=== PATIENT | female | born 1990 | race Two or more races ===

== ENCOUNTER 2017-04-29 18:42 | Inpatient (IN) | payer OTHER ==
[2017-04-29 19:21] VITALS: BMI 23.6
[2017-04-29 19:23] LABS: PH,URINE 7.5 (4.5-8); URINE APPEARANCE Clear; URINE BILIRUBIN Negative (NEGATIVE); URINE GLUCOSE (UA) Negative (NEGATIVE); URINE KETONE Negative (NEGATIVE); URINE LEUK ESTERASE Negative (NEGATIVE); URINE NITRITE Negative (NEGATIVE); URINE PROTEIN Negative (NEGATIVE); URINE UROBILINOGEN 0.2 (0.2-1.0)
[2017-04-29 19:24] LABS: URINE BLOOD NEGATIVE (NEGATIVE); URINE COLOR YELLOW
[2017-04-29] MEDS ORDERED: ACETAMINOPHEN INJECTION 100 ML IVPB ONE (19:28)
[2017-04-29] MEDS ORDERED: CEFTRIAXONE 1,000 MG in DEXTROSE 5%-WATER - 50 ML IVPB ONE (19:28)
[2017-04-29] MEDS ORDERED: ACETAMINOPHEN 1000 MG/100 ML VIAL (NON FORMULARY) IVPB ONE (19:28)
[2017-04-29] MEDS ORDERED: SODIUM CHLORIDE 0.9% 500 ML INFUS.BAG IV ONE (19:28)
[2017-04-29] MEDS ORDERED: cefTRIAXone SODIUM 1 GM VIAL ONE (19:33)
--- NOTE | 2017-04-29 19:36 | PDOC ---
History of Present Illness - General History Source: Patient Exam Limitations: No Limitations - History of Present Illness Initial Comments: 04/29/17 19:36 The patient is a 27 year old female with no significant past medical history who presents to the ED with two weeks of dysuria and 2 days of fever. The patient reports a gradual onset of dysuria 2 weeks ago. Patient states her mother is a nurse in [facility] and gave the patient norfloxacin. The patient took the norfloxacin twice a day for two days with moderate relief of symptoms. She states her symptoms returned and the patient developed fever, left sided flank pain, generalized body aches and slight nausea. She reports a fever of 102.8 F last night. The patient states she has been taking cipro twice a day for the past 3 days with no relief. Denies abdominal pain, vomiting, or diarrhea. Denies chest pain or shortness of breath. Denies any other symptoms. <Bharathi Kendrick - Last Filed: 04/29/17 19:36> <Georgie Hamlin - Last Filed: 04/29/17 21:43> - General Chief Complaint: Pain Stated Complaint: BACK PAIN, FEVER Past History <Bharathi Kendrick - Last Filed: 04/29/17 19:36> - Past Medical History COPD: No Other medical history: DENIES - Reproductive History Is Patient Now?: No - Suicide/Smoking/Psychosocial Hx Smoking History: Never smoked Have you smoked in the past 12 months: No Information on smoking cessation initiated: No Hx Alcohol Use: No Drug/Substance Use Hx: No Substance Use Type: None <Georgie Hamlin - Last Filed: 04/29/17 21:43> - Past Medical History Allergies/Adverse Reactions: Allergies Allergy/AdvReac Type Severity Reaction Status Date / Time No Known Allergies Allergy Verified 04/29/17 18:43 Home Medications: Ambulatory Orders Ciprofloxacin HCl [Cipro] 500 mg PO 04/29/17 Ibuprofen [Advil -] 400 mg PO ASDIR 04/29/17 Review of Systems - Review of Systems Able to Perform ROS?: Yes Comments:: 04/29/17 19:37 CONSTITUTIONAL: No reported: Fever, Chills, Diaphoresis, Generalized Weakness, Malaise, Loss of Appetite HEENT: No reported: Rhinorrhea, Nasal Congestion, Throat Pain, Throat Swelling, Difficulty Swallowing, Mouth Swelling, Ear Pain, Eye Pain, Visual Changes CARDIOVASCULAR: No reported: Chest Pain, Syncope, Palpitations, Irregular Heart Rate, Lightheadedness, Peripheral Edema RESPIRATORY: No reported: Cough, Shortness of Breath, SOB with Exertion, Orthopnea, Wheezing , Stridor, Hemoptysis GASTROINTESTINAL: No reported: Abdominal pain, Abdominal Distension, Nausea, Vomiting, Diarrhea, Constipation, Melena, Hematochezia GENITOURINARY: No reported: Dysuria, Frequency, Urgency, Hesitancy, Flank Pain, Genital Pain MUSCULOSKELETAL: No reported: Myalgia, Arthralgia, Joint Swelling, Back pain, Neck Pain SKIN: No reported: Rash, Itching, Pallor HEMEATOLOGIC/IMMUNOLOGIC: No reported: Easy Bleeding, Easy Bruising, Lymphadenopathy, Frequent infections ENDOCRINE: No reported: Unexplained Weight Gain, Unexplained Weight Loss, Heat Intolerance , Cold Intolerance NEUROLOGIC: No reported: Headache, Focal Weakness, Paresthesias, Vertigo, Lightheadedness, Unsteady Gait, Seizure, Mental Status Changes, Incontinence PSYCHIATRIC: No reported: Anxiety, Depression All Other Systems: Reviewed and Negative <Bharathi Kendrick - Last Filed: 04/29/17 19:36> *Physical Exam - Vital Signs Last Vital Signs Temp Pulse Resp BP Pulse Ox 102 F H 106 H 20 117/72 97 04/29/17 18:42 04/29/17 18:42 04/29/17 18:42 04/29/17 18:42 04/29/17 18:42 - Physical Exam Comments: 04/29/17 19:37 GENERAL: + febrile. The patient is awake, alert, and fully oriented, Nontoxic - in no acute distress. HEAD: Normocephalic, atraumatic. EYES: extraocular movements intact, sclera anicteric, conjunctiva clear. ENT: Normal voice, Moist mucous membranes. NECK: Normal range of motion, supple LUNGS: Breath sounds equal, clear to auscultation bilaterally. No wheezes, no rhonchi, no rales. HEART: Regular rate and rhythm, without murmur, rub or gallop. ABDOMEN: Soft, normoactive bowel sounds. No guarding, no rebound.No CVA tenderness EXTREMITIES: Normal range of motion, no edema. No clubbing or cyanosis. No cords, erythema, or tenderness. GENITOURINARY: + left sided flank pain to percussion, superpubic pain NEUROLOGICAL: No facial assymetry, Normal speech, PSYCH: Normal mood, normal affect. SKIN: + Hot to touch., Dry, normal turgor, <Bharathi Kendrick - Last Filed: 04/29/17 19:36> - Vital Signs Last Vital Signs Temp Pulse Resp BP Pulse Ox 102 F H 106 H 20 117/72 97 04/29/17 18:42 04/29/17 18:42 04/29/17 18:42 04/29/17 18:42 04/29/17 18:42 <Georgie Hamlin - Last Filed: 04/29/17 21:43> ED Treatment Course - ADDITIONAL ORDERS Additional order review: Laboratory Results 04/29/17 19:15 Urine Color Yellow Urine Appearance Clear Urine pH 7.5 Ur Specific [place] 1.010 Urine Protein Negative Urine Glucose (UA) Negative Urine Ketones Negative Urine Blood Negative Urine Nitrite Negative Urine Bilirubin Negative Urine Urobilinogen 0.2 Ur Leukocyte Esterase Negative Urine HCG, Qual Negative - Medications Given in the ED: ED Medications Discontinued Medications Generic Name Dose Route Start Last Admin Trade Name Patrickq PRN Reason Stop Dose Admin Acetaminophen 1,000 mg 04/29/17 19:28 04/29/17 19:32 Ofirmev Injection - IVPB 04/29/17 19:29 1,000 mg ONCE ONE Administration Sodium Chloride 1,000 ml 04/29/17 19:28 04/29/17 19:30 Normal Saline - IV 04/29/17 19:29 1,000 ml ONCE ONE Administration <Bharathi Kendrick - Last Filed: 04/29/17 19:36> - LABORATORY CBC & Chemistry Diagram: 04/29/17 19:30 04/29/17 19:30 - ADDITIONAL ORDERS Additional order review: Laboratory Results 04/29/17 19:15 Urine Color Yellow Urine Appearance Clear Urine pH 7.5 Ur Specific [place] 1.010 Urine Protein Negative Urine Glucose (UA) Negative Urine Ketones Negative Urine Blood Negative Urine Nitrite Negative Urine Bilirubin Negative Urine Urobilinogen 0.2 Ur Leukocyte Esterase Negative Urine HCG, Qual Negative - RADIOLOGY Radiology Studies Ordered: Category Date Time Status CHEST X-RAY PORTABLE* [RAD] Stat Radiology 04/29/17 19:30 Ordered KIDNEY / RENAL US [US] Stat Ultrasound 04/29/17 19:31 Ordered - Medications Given in the ED: ED Medications Discontinued Medications Generic Name Dose Route Start Last Admin Trade Name Hoda PRN Reason Stop Dose Admin Acetaminophen 1,000 mg 04/29/17 19:28 04/29/17 19:32 Ofirmev Injection - IVPB 04/29/17 19:29 1,000 mg ONCE ONE Administration Sodium Chloride 1,000 ml 04/29/17 19:28 04/29/17 19:30 Normal Saline - IV 04/29/17 19:29 1,000 ml ONCE ONE Administration <Georgie Hamlin - Last Filed: 04/29/17 21:43> Medical Decision Making - Medical Decision Making 04/29/17 21:38 Pt comes with fever and flank and suprapubic pain after she has had UTI poorly treated for the past 2 weeks. States that she initially took norfloxin BID x 2 days then stopped therapt, as she felt better; then she developed dysuria and fever and treated self with cipro BID x 3 days. Today she comes after 3rd day of unsuccessful cipro treatment. She has suprapubic pain and left flank pain. SHe has fever and chills and nausea; no vomiting, however. No ill contacts and no other symptoms. Pt will be admitted to [facility] for parenteral abx and assessment and ID consultation as needed. BUN Cr are normal; pt has kidney stones in the upper and lower poles of her kidney. Pt has elevated WBC count; UA is negative (due to abx) however despite the normal UA, pt has considerable fever and fllank and suprapubic pain. Admit to hospitalist, as pt has no PMD. <Georgie Hamlin - Last Filed: 04/29/17 21:43> *DC/Admit/Observation/Transfer - Attestations Scribe Attestion: 04/29/17 19:37 Documentation prepared by Bharathi Kendrick, acting as medical laboratory assistant for Georgie Hamlin MD <Bharathi Kendrick - Last Filed: 04/29/17 19:36> - Discharge Dispostion Admit: Yes <Georgie Hamlin - Last Filed: 04/29/17 21:43> Diagnosis at time of Disposition: Pyelonephritis, Sepsis - Discharge Dispostion Condition at time of disposition: Guarded
[2017-04-29 19:56] LABS: BASOPHIL 0.2 % (0-2.0); EOSINOPHIL 0.3 % (0-4.5); INR 1.36 (0.82-1.09); MCH 25.9 pg (25.7-33.7); MEAN CELL VOLUME 78.3 fl (80-96); MEAN PLT VOLUME 8.7 fl (7.5-11.1); NEUTROPHILS 80.3 % (42.8-82.8); PLATELET COUNT 269 K/MM3 (134-434); PROTHROMBIN TIME (PATIENT) 15.1 SEC (10.2-13.0); RDW 12.3 % (11.6-15.6); WHITE BLOOD COUNT 14.2 K/mm3 (4.0-10.8)
[2017-04-29 20:12] LABS: ALBUMIN 3.8 g/dl (3.5-5.0); ALK PHOS 48 U/L (32-92); ANION GAP 8 (8-16); BILIRUBIN,TOTAL 0.5 mg/dl (0.2-1.0); CALCIUM 8.7 mg/dl (8.4-10.2); CO2 23 mmol/L (22-28); CREATININE 0.9 mg/dl (0.6-1.3); GLUCOSE,RANDOM 113 mg/dl (74-106); SGOT/AST 18 U/L (10-42); SGPT/ALT 24 U/L (10-40)
[2017-04-29] MEDS ORDERED: predniSONE 20 MG TABLET (UD) ONE (20:15)
[2017-04-29] MEDS ORDERED: ALBUTEROL SO4 2.5/IPRATROPIUM 0.5 INH SOL 3 ML VIAL.NEB. NEB ONE (20:15)
--- NOTE | 2017-04-29 21:35 | HP ---
CHIEF COMPLAINT: Left Flank Pain, Abdominal Pain PCP: HISTORY OF PRESENT ILLNESS: This is a 27 y/o woman with no past medical history. Who presents to the ED with left flank and generalized abdominal pain x 1 week. Patient reports having UTI symptoms and taking Norfloxacin for 2 days, given to her by her mother. Patient reports after taking the medication she had temporary relief, then began having flank pain, then going to an Urgent Care and was started on Cipro for 3 days. Patient reports having a subjective fever 102.8 for 2 days. Patient denies cough, CP, N/V/D, constipation. LMP 04/15/17. ER course was notable for: (1) T Max 102.0 (2) US- small renal stones non-obstructing, no hydronephrosis (3) WBC 14.2 Recent Travel: None PAST MEDICAL HISTORY: None PAST SURGICAL HISTORY: None Social History: Smoking: Never Alcohol: None Drugs: None Family History: Father: Cardiac, DM, HTN Mother: HTN Allergies No Known Allergies Allergy (Verified 04/29/17 18:43) HOME MEDICATIONS: Home Medications Medication Instructions Recorded Ciprofloxacin HCl [Cipro] 500 mg PO 04/29/17 Ibuprofen [Advil -] 400 mg PO ASDIR 04/29/17 REVIEW OF SYSTEMS CONSTITUTIONAL: Absent: fever, chills, diaphoresis, generalized weakness, malaise, loss of appetite, weight change HEENT: Absent: rhinorrhea, nasal congestion, throat pain, throat swelling, difficulty swallowing, mouth swelling, ear pain, eye pain, visual changes CARDIOVASCULAR: Absent: chest pain, syncope, palpitations, irregular heart rate, lightheadedness , peripheral edema RESPIRATORY: Absent: cough, shortness of breath, dyspnea with exertion, orthopnea, wheezing, stridor, hemoptysis GASTROINTESTINAL: abdominal pain, Absent: abdominal distension, nausea, vomiting, diarrhea, constipation, melena, hematochezia GENITOURINARY: flank pain Absent: dysuria, frequency, urgency, hesitancy, hematuria, genital pain MUSCULOSKELETAL: Absent: myalgia, arthralgia, joint swelling, back pain, neck pain SKIN: Absent: rash, itching, pallor HEMATOLOGIC/IMMUNOLOGIC: Absent: easy bleeding, easy bruising, lymphadenopathy, frequent infections ENDOCRINE: Absent: unexplained weight gain, unexplained weight loss, heat intolerance, cold intolerance NEUROLOGIC: Absent: headache, focal weakness or paresthesias, dizziness, unsteady gait, seizure, mental status changes, bladder or bowel incontinence PSYCHIATRIC: Absent: anxiety, depression, suicidal or homicidal ideation, hallucinations. PHYSICAL EXAMINATION Vital Signs - 24 hr 04/29/17 18:42 Temperature 102 F H Pulse Rate 106 H Respiratory 20 Rate Blood Pressure 117/72 O2 Sat by Pulse 97 Oximetry (%) GENERAL: Awake, alert, and fully oriented, in no acute distress. HEAD: Normal with no signs of trauma. EYES: Pupils equal, round and reactive to light, extraocular movements intact, sclera anicteric, conjunctiva clear. No lid lag. EARS, NOSE, THROAT: Ears normal, nares patent, oropharynx clear without exudates. Dry mucous membranes. NECK: Normal range of motion, supple without lymphadenopathy, JVD, or masses. LUNGS: Breath sounds equal, clear to auscultation bilaterally. No wheezes, and no crackles. No accessory muscle use. HEART: Regular rate and rhythm, normal S1 and S2 without murmur, rub or gallop. ABDOMEN: Soft, generalized tenderness, not distended, normoactive bowel sounds, no guarding, no rebound, no masses. No hepatomegaly or splenomegaly. MUSCULOSKELETAL: Normal range of motion at all joints. No bony deformities or tenderness. No CVA tenderness. UPPER EXTREMITIES: 2+ pulses, warm, well-perfused. No cyanosis. No clubbing. No peripheral edema. LOWER EXTREMITIES: 2+ pulses, warm, well-perfused. No calf tenderness. No peripheral edema. NEUROLOGICAL: Cranial nerves II-XII intact. Normal speech. Gait not observed. PSYCHIATRIC: Cooperative. Good eye contact. Appropriate mood and affect. SKIN: Warm, dry, normal turgor, no rashes or lesions noted, normal capillary refill. Laboratory Results - last 24 hr 04/29/17 04/29/17 04/29/17 19:15 19:30 19:30 WBC 14.2 H RBC 4.93 Hgb 12.7 Hct 38.6 MCV 78.3 L MCH 25.9 MCHC 33.0 RDW 12.3 Plt Count 269 MPV 8.7 Neutrophils % 80.3 Lymphocytes % 11.2 Monocytes % 8.0 Eosinophils % 0.3 Basophils % 0.2 PT with INR 15.1 H INR 1.36 H Sodium Potassium Chloride Carbon Dioxide Anion Gap BUN Creatinine Creat Clearance w eGFR Random Glucose Lactic Acid Calcium Total Bilirubin AST ALT Alkaline Phosphatase Total Protein Albumin Urine Color Yellow Urine Appearance Clear Urine pH 7.5 Ur Specific [place] 1.010 Urine Protein Negative Urine Glucose (UA) Negative Urine Ketones Negative Urine Blood Negative Urine Nitrite Negative Urine Bilirubin Negative Urine Urobilinogen 0.2 Ur Leukocyte Esterase Negative Urine HCG, Qual Negative 04/29/17 04/29/17 19:30 19:39 WBC RBC Hgb Hct MCV MCH MCHC RDW Plt Count MPV Neutrophils % Lymphocytes % Monocytes % Eosinophils % Basophils % PT with INR INR Sodium 132 L Potassium 3.7 Chloride 101 Carbon Dioxide 23 Anion Gap 8 BUN 11 Creatinine 0.9 Creat Clearance w eGFR > 60 Random Glucose 113 H Lactic Acid 0.8 Calcium 8.7 Total Bilirubin 0.5 AST 18 ALT 24 Alkaline Phosphatase 48 Total Protein 7.0 Albumin 3.8 Urine Color Urine Appearance Urine pH Ur Specific Likely Urine Protein Urine Glucose (UA) Urine Ketones Urine Blood Urine Nitrite Urine Bilirubin Urine Urobilinogen Ur Leukocyte Esterase Urine HCG, Qual ASSESSMENT/PLAN: This is a 27 y/o with no past medical history. Admitted for Pyelonephritis secondary to Failed Outpatient Therapy for further evaluation of their emergent condition. Plan: FEN - NS@75ml/hr - Replete lytes prn - Regular Diet DVT Prophylaxis - OOB - SCDs Code Status: Full Code Dispo: Requires Inpatient Care Problem List - Problem (1) Pyelonephritis Assessment/Plan: - Failed Outpatient Therapy - No leukocytosis, No Lactic Acidemia likely secondary to recent ABX use - T Max 102.0 - Blood Cultures-pending - Urine Culture-pending - US- nonobstructing stones - Consider CTAP if condition worsens - Ceftriaxone given in ED, will continue secondary to recent floroquinolone use - Appreciate ID Consult - Tylenol prn - IVF - Repeat CBC, BMP Code(s): N12 - TUBULO-INTERSTITIAL NEPHRITIS, NOT SPCF ACUTE OR CHRONIC (2) Sepsis Assessment/Plan: - Likely secondary to pyelonephritis - Failed Outpatient Therapy- floroquinolones - qSOFA Score 0 - SIRS Criteria Met II- T-102, WBC 14.2 - Blood Cultures-pending - Urine Culture-pending - Continue Ceftriaxone - Appreciate ID Consult - Monitor Vitals - CBC, BMP in am Code(s): A41.9 - SEPSIS, UNSPECIFIED ORGANISM (3) DVT prophylaxis Assessment/Plan: - OOB - SCDs Code(s): XQF7168 - Visit type - Emergency Visit Emergency Visit: Yes ED Registration Date: 04/29/17 Care time: The patient presented to the Emergency Department on the above date and was hospitalized for further evaluation of their emergent condition. - New Patient This patient is new to me today: Yes Date on this admission: 04/29/17 - Critical Care Critical Care patient: No
[2017-04-29] MEDS: SODIUM CHLORIDE 1,000 ML IV SCH (23:20)
--- NOTE | 2017-04-30 09:07 | PN ---
Progress Note (short form) - Note Progress Note: ID Consult dictated Acute L Pyelonephritis Possible sepsis secondary to source L Nephrolithiasis Concerned about Quinolone-resistant pathogens, wayne ESBL in light of recent travel to [place] Await cultures Obtain CT A/P - R/O obstructing nephrolith/ perinephric abscess
[2017-04-30 09:14] LABS: ANION GAP 8 (8-16); CALCIUM 8.1 mg/dl (8.4-10.2); CO2 23 mmol/L (22-28); CREATININE 0.8 mg/dl (0.6-1.3); GLUCOSE,RANDOM 86 mg/dl (74-106)
[2017-04-30] MEDS ORDERED: CEFTRIAXONE 1 G/50 ML PREMIX 50 ML IVPB SCH (10:00)
--- NOTE | 2017-04-30 10:03 | CONS ---
DATE OF CONSULTATION: DATE OF DICTATION: 04/30/2017 The patient is a 27-year-old previously healthy female who is evaluated for left pyelonephritis. The patient traveled to [facility] in late February/early March 2017; she returned on or about March 11. Approximately 2 weeks ago, she developed dysuria and urinary frequency. She took norfloxacin for 2 days with clinical improvement; she discontinued the medication. Over the past 2 days, she has had recurrent dysuria, now associated with high-grade fever, left flank pain, and suprapubic pain. She was seen in an urgent care center and was prescribed Cipro. The patient had worsening symptoms and presented to the emergency room after developing fever to 102.8. She was seen in the emergency room, cultures were obtained, she was empirically treated with ceftriaxone. She reports associated fever with chills. She has had nausea, but no vomiting. A renal sonogram was performed and showed a nonobstructing left renal calculus. Her course has been notable for a temperature to 102 and white blood cell count of 14,000. At the present time, she is comfortable, she reports improvement in the dysuria. She continues to complain of left flank pain. She denies any gross hematuria. No history of recurrent urinary tract infections. PAST MEDICAL HISTORY: Negative. No known allergies. CURRENT MEDICATIONS: Ceftriaxone, Tylenol. SOCIAL HISTORY: She lives at home with her significant other, who is a critical care nurse. Nonsmoker, nondrinker. Recent travel to [facility], as noted. SYSTEMS REVIEW: Neurologic: No loss of consciousness, seizure activity, focal weakness. Cardiac: Negative chest pain or palpitations. Respiratory: Negative cough or sputum production. Gastrointestinal: Positive nausea. No vomiting or diarrhea. Genitourinary: As per HPI. LABORATORY DATA: White count 14.2 with 80 neutrophils, 11 lymphocytes, 8 monocytes, hematocrit 38.6, platelet count 269. BUN 11, creatinine 0.9. Liver enzymes normal. Urinalysis: Negative leukocyte esterase. CHEST X-RAY: Negative. PHYSICAL EXAMINATION: General: She is awake and alert. She is in no acute distress. Vital Signs: Temperature maximum 102, blood pressure 108/78, pulse 89 and regular, respirations 18 per minute. HEENT: Sclerae anicteric. Heart Sounds: S1, S2. Lungs: Clear. Abdomen: Soft. There is left CVA tenderness. No suprapubic tenderness. Extremities: Negative for edema. IMPRESSION: 1. Acute left pyelonephritis. 2. Possible sepsis secondary to genitourinary source. 3. Nonobstructing left nephrolithiasis. Concerned about quinolone-resistant urinary tract pathogens, especially ESBL, in light of recent travel to [place] and recent quinolone usage. Await culture results, continue IV fluid hydration. Will substitute meropenem as empiric coverage for possible ESBL. Obtain CT scan of the abdomen and pelvis to rule out an obstructing left nephrolith or perinephric abscess. Case was discussed with patient's , present at the time of the examination. Thank you for the kind referral. JAX LIZAMA M.D. [id number]
[2017-04-30] MEDS: MEROPENEM 1 GM in DEXTROSE 5%-WATER - 100 ML IVPB SCH (10:22)
[2017-04-30] MEDS ORDERED: MEROPENEM 1 GM PUSH 1 GM/20 ML DISP.SYRIN IVPUSH SCH (10:30)
--- NOTE | 2017-04-30 11:02 | PN ---
Physical Exam: SUBJECTIVE: Patient seen and examined Reports feeling better but still c/o Left flank and mild suprapubic discomfort ,denies fever,chills,nausea/vomiting or diarrhea. OBJECTIVE: Vital Signs Period Temp Pulse Resp BP Sys/[place] Pulse Ox Last 24 Hr 97.7 F-102 F 85-106 18-20 96-117/56-78 97-100 GENERAL: The patient is awake, alert, and fully oriented, in no acute distress. HEAD: Normal with no signs of trauma. EYES: PERRL, extraocular movements intact, sclera anicteric, conjunctiva clear. No ptosis. ENT: Ears normal, nares patent, oropharynx clear without exudates, moist mucous membranes. NECK: Trachea midline, full range of motion, supple. LUNGS: Breath sounds equal, clear to auscultation bilaterally, no wheezes, no crackles, no accessory muscle use. HEART: Regular rate and rhythm, S1, S2 without murmur, rub or gallop. ABDOMEN: Soft, mild suprapubic tenderness, nondistended, normoactive bowel sounds, no guarding, no rebound, no hepatosplenomegaly, no masses. EXTREMITIES: 2+ pulses, warm, well-perfused, no edema. NEUROLOGICAL: Cranial nerves II through XII grossly intact. Normal speech, gait not observed. PSYCH: Normal mood, normal affect. SKIN: Warm, dry, normal turgor, no rashes or lesions noted Back: Left flank tenderness Laboratory Results - last 24 hr 04/29/17 04/29/17 04/29/17 19:15 19:30 19:30 WBC 14.2 H RBC 4.93 Hgb 12.7 Hct 38.6 MCV 78.3 L MCH 25.9 MCHC 33.0 RDW 12.3 Plt Count 269 MPV 8.7 Neutrophils % 80.3 Lymphocytes % 11.2 Monocytes % 8.0 Eosinophils % 0.3 Basophils % 0.2 PT with INR 15.1 H INR 1.36 H Sodium Potassium Chloride Carbon Dioxide Anion Gap BUN Creatinine Creat Clearance w eGFR Random Glucose Lactic Acid Calcium Total Bilirubin AST ALT Alkaline Phosphatase Total Protein Albumin Urine Color Yellow Urine Appearance Clear Urine pH 7.5 Ur Specific [place] 1.010 Urine Protein Negative Urine Glucose (UA) Negative Urine Ketones Negative Urine Blood Negative Urine Nitrite Negative Urine Bilirubin Negative Urine Urobilinogen 0.2 Ur Leukocyte Esterase Negative Urine HCG, Qual Negative 04/29/17 04/29/17 04/30/17 19:30 19:39 06:00 WBC RBC Hgb Hct MCV MCH MCHC RDW Plt Count MPV Neutrophils % Lymphocytes % Monocytes % Eosinophils % Basophils % PT with INR INR Sodium 132 L 137 Potassium 3.7 4.0 Chloride 101 106 Carbon Dioxide 23 23 Anion Gap 8 8 BUN 11 12 Creatinine 0.9 0.8 Creat Clearance w eGFR > 60 Random Glucose 113 H 86 D Lactic Acid 0.8 Calcium 8.7 8.1 L Total Bilirubin 0.5 AST 18 ALT 24 Alkaline Phosphatase 48 Total Protein 7.0 Albumin 3.8 Urine Color Urine Appearance Urine pH Ur Specific [place] Urine Protein Urine Glucose (UA) Urine Ketones Urine Blood Urine Nitrite Urine Bilirubin Urine Urobilinogen Ur Leukocyte Esterase Urine HCG, Qual Active Medications Generic Name Dose Route Start Last Admin Trade Name Freq PRN Reason Stop Dose Admin Acetaminophen 650 mg 04/29/17 22:08 Tylenol - PO Q6H PRN FEVER OR PAIN Sodium Chloride 1,000 mls @ 75 mls/hr 04/29/17 22:00 04/29/17 23:20 Normal Saline - IV 75 mls/hr ASDIR SILVIA Administration Meropenem 1 gm in 20 mls @ 240 mls/hr 04/30/17 10:30 Merrem (Restricted To Id) - IVPUSH Q8H-IV SILVIA Protocol ASSESSMENT/PLAN: This is a 27 y/o with no past medical history. Admitted for Pyelonephritis secondary to Failed Outpatient Therapy for further evaluation of their emergent condition. * Sepsis secondary to Acute Pyelonephritis - Failed Outpatient Therapy - ID following, changed abx to Meropanem - afebrile now, initial wbc 14.2, will recheck - Blood Cultures-pending - Urine Culture-pending - lactic acid -wnl * Left kidney stones - Renal US- non-obstructing stones - will cont on IVF - will get CT abdomen R/O nephrolithiasis/ abscess * DVT prophylaxis: OOB,SCDs * F/E/N - IV hydration, regular diet Visit type - Emergency Visit Emergency Visit: Yes ED Registration Date: 04/29/17 Care time: The patient presented to the Emergency Department on the above date and was hospitalized for further evaluation of their emergent condition. - New Patient This patient is new to me today: Yes Date on this admission: 04/30/17 - Critical Care Critical Care patient: No
[2017-04-30] MEDS: MEROPENEM 1 GM PUSH 1 GM/20 ML DISP.SYRIN IVPUSH SCH ×2 (12:08→17:48)
[2017-04-30] MEDS: SODIUM CHLORIDE 1,000 ML IV SCH (13:00)
[2017-04-30] MEDS: ACETAMINOPHEN 325 MG TABLET (FP) PO PRN ×2 (13:12→21:54)
[2017-04-30] MEDS ORDERED: PT OWN MED DRAWER 7, Y5N ONE (17:42)
--- NOTE | 2017-04-30 17:45 | EKG ---
Test Reason : Blood Pressure : / mmHG Vent. Rate : 095 BPM Atrial Rate : 095 BPM P-R Int : 172 ms QRS Dur : 082 ms QT Int : 342 ms P-R-T Axes : 054 055 034 degrees QTc Int : 429 ms SINUS RHYTHM RSR' OR QR PATTERN IN V1 SUGGESTS RIGHT VENTRICULAR CONDUCTION DELAY NONSPECIFIC ST AND T WAVE ABNORMALITY NO PREVIOUS ECGS AVAILABLE Confirmed by NATALY HA MD ([id number]) on 04/30/2017 5:45:06 PM Referred By: MANISHA Confirmed By:NATALY HA MD
[2017-04-30] MEDS ORDERED: guaiFENesin 200 MG/10 ML 10 ML UNIT-DOSE CUPS PO PRN (22:41)
[2017-05-01] MEDS ORDERED: PT OWN MED DRAWER 7, Y5N ONE ×3 (01:49→09:11)
[2017-05-01] MEDS: MEROPENEM 1 GM PUSH 1 GM/20 ML DISP.SYRIN IVPUSH SCH ×2 (02:01→09:19)
[2017-05-01 05:53] VITALS: BP 105/67; PULSE 79; TEMP 98.3
--- NOTE | 2017-05-01 09:01 | PN ---
Progress Note, Physician History of Present Illness: Reports less L flank pain No c/o dysuria/ hematuria Afebrile Temp 102 yesterday 1pm BC no growth Urine c/s pending CT shows ? hypoperfusion L kidney- will review with radiologist Tolerating antibiotic - Current Medication List Current Medications: Active Medications Acetaminophen (Tylenol -) 650 mg PO Q6H PRN PRN Reason: FEVER OR PAIN Last Admin: 04/30/17 21:54 Dose: 650 mg Guaifenesin (Robitussin -) 10 ml PO Q6H PRN PRN Reason: COUGH Last Admin: 04/30/17 22:49 Dose: 10 ml Sodium Chloride (Normal Saline -) 1,000 mls @ 75 mls/hr IV ASDIR SILVIA Last Admin: 04/30/17 13:00 Dose: 75 mls/hr Meropenem (Merrem (Restricted To Id) -) 1 gm in 20 mls @ 240 mls/hr IVPUSH Q8H- IV SILVIA PRN Reason: Protocol Last Admin: 05/01/17 02:01 Dose: 240 mls/hr - Objective Vital Signs: Vital Signs Temperature 98.3 F 05/01/17 05:52 Pulse Rate 79 05/01/17 05:52 Respiratory Rate 18 05/01/17 07:57 Blood Pressure 105/67 05/01/17 05:52 O2 Sat by Pulse Oximetry (%) 100 05/01/17 07:57 Constitutional: Yes: No Distress Eyes: Yes: Conjunctiva Clear Cardiovascular: Yes: Regular Rate and Rhythm, S1, S2 Respiratory: Yes: CTA Bilaterally Gastrointestinal: Yes: Normal Bowel Sounds, Soft. No: Tenderness Genitourinary: Yes: CVA Tenderness - Left Edema: No Labs: CBC, BMP 04/29/17 19:30 04/30/17 06:00 INR, PTT INR 1.36 (0.82-1.09) H 04/29/17 19:30 Assessment/Plan Acute L pyelonephritis R/O sepsis secondary to source Await cultures- may be negative in light of recent quinolone Continue meropenem
[2017-05-01] MEDS: MEROPENEM 1 GM in DEXTROSE 5%-WATER - 100 ML IVPB SCH (09:18)
--- NOTE | 2017-05-01 09:25 | PN ---
Physical Exam: SUBJECTIVE: Patient seen and examined OBJECTIVE: Vital Signs Period Temp Pulse Resp BP Sys/[place] Pulse Ox Last 24 Hr 97.9 F-102.1 F 71-106 18-18 93-112/49-67 95-100 GENERAL: The patient is awake, alert, and fully oriented, in no acute distress. HEAD: Normal with no signs of trauma. EYES: PERRL, extraocular movements intact, sclera anicteric, conjunctiva clear. No ptosis. ENT: Ears normal, nares patent, oropharynx clear without exudates, moist mucous membranes. NECK: Trachea midline, full range of motion, supple. LUNGS: Breath sounds equal, clear to auscultation bilaterally, no wheezes, no crackles, no accessory muscle use. HEART: Regular rate and rhythm, S1, S2 without murmur, rub or gallop. ABDOMEN: Soft, nontender, nondistended, normoactive bowel sounds, no guarding, no rebound, no hepatosplenomegaly, no masses. EXTREMITIES: 2+ pulses, warm, well-perfused, no edema. NEUROLOGICAL: Cranial nerves II through XII grossly intact. Normal speech, gait not observed. PSYCH: Normal mood, normal affect. SKIN: Warm, dry, normal turgor, no rashes or lesions noted Active Medications Generic Name Dose Route Start Last Admin Trade Name Freq PRN Reason Stop Dose Admin Acetaminophen 650 mg 04/29/17 22:08 04/30/17 21:54 Tylenol - PO 650 mg Q6H PRN Administration FEVER OR PAIN Guaifenesin 10 ml 04/30/17 22:41 04/30/17 22:49 Robitussin - PO 10 ml Q6H PRN Administration COUGH Sodium Chloride 1,000 mls @ 75 mls/hr 04/29/17 22:00 04/30/17 13:00 Normal Saline - IV 75 mls/hr ASDIR SILVIA Administration Meropenem 1 gm in 20 mls @ 240 mls/hr 04/30/17 12:00 05/01/17 09:19 Merrem (Restricted To Id) - IVPUSH 240 mls/hr Q8H-IV SILVIA Administration Protocol ASSESSMENT/PLAN:
[2017-05-01 09:27] LABS: BASOPHIL 0.3 % (0-2.0); EOSINOPHIL 1.1 % (0-4.5); MCH 25.7 pg (25.7-33.7); MCHC 32.2 g/dl (32.0-36.0); MEAN CELL VOLUME 79.9 fl (80-96); MEAN PLT VOLUME 9.3 fl (7.5-11.1); NEUTROPHILS 72.4 % (42.8-82.8); PLATELET COUNT 272 K/MM3 (134-434); RDW 12.2 % (11.6-15.6); WHITE BLOOD COUNT 9.3 K/mm3 (4.0-10.8)
--- NOTE | 2017-05-01 10:41 | DS ---
Physical Exam: SUBJECTIVE: Patient seen and examined, reports feeling much better, denies any abdominal pain, nausea or tactile fever, patient is tolerating meals. OBJECTIVE: patient is a 27 y/o woman with no past medical history. Who presents to the ED with left flank and generalized abdominal pain x 1 week. Patient reports having UTI symptoms and taking Norfloxacin for 2 days, given to her by her mother. Patient reports after taking the medication she had temporary relief, then began having flank pain, then going to an Urgent Care and was started on Cipro for 3 days. Patient reports having a subjective fever 102.8 for 2 days. Patient denies cough, CP, N/V/D, constipation. LMP 04/15/17. ER course was notable for: (1) T Max 102.0 (2) US- small renal stones non-obstructing, no hydronephrosis (3) WBC 14.2 Vital Signs Period Temp Pulse Resp BP Sys/[place] Pulse Ox Last 24 Hr 97.9 F-102.1 F 71-106 18-18 93-112/49-67 95-100 PHYSICAL EXAM GENERAL: The patient is awake, alert, and fully oriented, in no acute distress. HEAD: Normal with no signs of trauma. EYES: PERRL, extraocular movements intact, sclera anicteric, conjunctiva clear. ENT: Ears normal, nares patent, oropharynx clear without exudates, moist mucous membranes. NECK: Trachea midline, full range of motion, supple. LUNGS: Breath sounds equal, clear to auscultation bilaterally, no wheezes, no crackles, no accessory muscle use. HEART: Regular rate and rhythm, S1, S2 without murmur, rub or gallop. ABDOMEN: Soft, left cva tenderness, nondistended, normoactive bowel sounds, no guarding, no rebound, no hepatosplenomegaly, no masses. EXTREMITIES: 2+ pulses, warm, well-perfused, no edema. NEUROLOGICAL: Cranial nerves II through XII grossly intact. Normal speech, gait not observed. PSYCH: Normal mood, normal affect. SKIN: Warm, dry, normal turgor, no rashes or lesions noted. LABS Laboratory Results - last 24 hr 05/01/17 08:13 WBC 9.3 D RBC 4.92 Hgb 12.6 Hct 39.3 MCV 79.9 L MCH 25.7 MCHC 32.2 RDW 12.2 Plt Count 272 MPV 9.3 Neutrophils % 72.4 Lymphocytes % 17.3 D Monocytes % 8.9 Eosinophils % 1.1 D Basophils % 0.3 Microbiology 04/29/17 19:30 Blood - Peripheral Venous Blood Culture - Preliminary NO GROWTH OBTAINED AFTER 24 HOURS, INCUBATION TO CONTINUE FOR 4 DAYS. 04/29/17 19:45 Blood - Peripheral Venous Blood Culture - Preliminary NO GROWTH OBTAINED AFTER 24 HOURS, INCUBATION TO CONTINUE FOR 4 DAYS. IMAGING renal ultrasound, possible left nephrolithasis ct of abd/pelvis w/o contrast: left kidney hypoperfusion, consistent with pylonephritis, right ovarian cyst and trace of free fluid HOSPITAL COURSE: Patient was admitted for Sepsis secondary to Acute Pyelonephritis after failing Outpatient Therapy. Infectious disease physician, Dr Jimenez consulted and followed, patient was treated with Meropanem for 48 hours, blood cultures are negative to date. Patient is afebrile for 24 hours and no leukocytosis. PLAN - discharge home on vantin 200mg bid - f/u with pcp within 1 week for a repeat urine culture Date of Admission:04/29/17 Date of Discharge: 05/01/17 Minutes to complete discharge: 45 Discharge Summary Reason For Visit: PYELONEPHRITIS, SEPSIS Current Active Problems DVT prophylaxis (Acute) Pyelonephritis (Acute) Sepsis (Acute) Condition: Guarded - Instructions Diet, Activity, Other Instructions: increase fluids continue taking antibiotics as prescribed please follow up with your pcp within 1 week if any new or persistent symptoms develop please return to the emergency department Disposition: HOME - Home Medications Comprehensive Discharge Medication List: Ambulatory Orders Ciprofloxacin HCl [Cipro] 500 mg PO 04/29/17 Ibuprofen [Advil -] 400 mg PO ASDIR 04/29/17 This patient is new to me today: Yes Date on this admission: 05/01/17 Emergency Visit: Yes ED Registration Date: 04/29/17 Care time: The patient presented to the Emergency Department on the above date and was hospitalized for further evaluation of their emergent condition. Critical Care patient: No - Discharge Referral Referred to [facility] Med [facility].C[facility] No
[2017-05-01] MEDS ORDERED: FLU VACCINE QUAD 60 MCG/0.5 ML (MDV 17-18) IM ONE (11:45)
== END 2017-05-01 11:33 | disposition home or self-care (01) | DRG 872 ==
LOC: FER 18:42 → FM/S 22:22
PROVIDERS: ADMIT Internal Medicine; ATTEND Nurse Practitioner Family
DX: A41.9 Sepsis, unspecified organism (principal); N10 Acute pyelonephritis; N20.0 Calculus of kidney
CPT/HCPCS: 36415; 71010-TC; 74177-TC; 76775-TC; 80048; 80053; 81003; 83605; 84703; 85025; 85610; 87040; 87086; 87186; 90688; 93005; 99285-25